=== PATIENT | male | born 1965 | race Caucasian/White ===

== ENCOUNTER 2017-04-05 09:04 | Emergency (ER) | payer BC, OTHER ==
[2017-04-05 09:41] LABS: Hematocrit 46.4 % (42.0-52.0); Mean Cell Volume 90.4 fl (78-100); Mean Corpuscular Hemoglobin 29.2 pg (27-31); Mean Corpuscular Hgb Conc 32.3 g/dl (32-36); Mean Platelet Volume 10.4 fl (6.0-9.5); Neutrophil # 5.7 K/mm3 (1.3-6.0); Neutrophil % 73.3 % (42-75.0); Platelet Count 243 K/mm3 (150-450); Red Blood Count 5.13 M/mm3 (4.7-6.0); Red Cell Distribution Width 14.1 % (11.5-14.0); White Blood Count 7.8 K/mm3 (4.0-10.5)
[2017-04-05 10:05] LABS: Albumin * 3.4 gm/dl (3.4-5.0); BUN/Creatinine Ratio 9.3 (9.0-21.6); Ca. Corrected For Albumin 9.1 mg/dL (8.4-10.2); Calcium * 8.9 mg/dL (7.9-10.9); Carbon Dioxide 26.2 mmol/L (24-32.6); Potassium 4.2 mmol/L (3.4-4.6); Total Protein 8.1 gm/dL (6.2-8.2)
[2017-04-05] MEDS ORDERED: KETOROLAC TROMETHAMINE 30 MG/ML VIAL IV ONE (10:12)
[2017-04-05] MEDS ORDERED: ORPHENADRINE CITRATE 30 MG/ML VIAL IV ONE (10:12)
[2017-04-05] MEDS ORDERED: ORPHENADRINE CITRATE 30 MG/ML VIAL ONE (10:18)
[2017-04-05] MEDS ORDERED: KETOROLAC TROMETHAMINE 30 MG/ML VIAL ONE (10:18)
--- NOTE | 2017-04-05 10:22 | ERNOTE ---
Neuro HPI ER Record Date of Service: 04/05/17 Presenting Symptoms: other - Syncope Time Seen by Provider: 04/05/17 10:00 Source: patient, RN notes reviewed Exam Limitations: no limitations Immunizations: IMMUNIZATION HX History of Influenza Vaccine Yes Allergies/Adverse Reactions: Allergies Allergy/AdvReac Type Severity Reaction Status Date / Time Penicillins Allergy Verified 04/05/17 09:20 Sulfa (Sulfonamide Allergy Verified 04/05/17 09:20 Antibiotics) [Sulfa(Sulfonamide Antibiotics)] Home Medications: HOME MEDICATIONS Lansoprazole [Prevacid] 30 mg PO BID 09/29/16 [Last Taken 09/29/16] Aspirin [Aspirin EC] 81 mg PO DAILY 04/05/17 [Last Taken Unknown] metFORMIN HCL [Metformin HCl] 500 mg PO BID 04/05/17 [Last Taken Unknown] - History of Present Illness Narrative: 51 year old male brought to the ED by private vehicle after a syncopal episode at home. He reports getting up for work at approximately 0500 and feeling dizzy. He called in sick to work, and then woke up on the floor at about 0800. He had been incontinent of stool. He has a long history of cervical and thoracic spine problems. He states he has had stool leakage in the past, but never to this extent. He denies any prior history of seizures. He is diabetic and is on metformin. 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 He ended up having a shoulder surgery in January. He has had a MRI and has been seen by a materials specialist. He has been doing physical therapy. He takes ibuprofen for pain but reports that it "doesn' t do anything." Last Date Known Well: 04/05/17 Last Time Known Well: 05:10 Onset: upon waking, better, >3 hours Context: fall - Syncope - Character of Deficits New weakness: Present: other - None Altered sensation: Present: other - paresthesias in upper extremities - chronic since fall last September Additional Deficits: Absent: vision problems, impaired speech, difficulty swallowing, decrease ability to stand, decrease ability to walk, weakness Baseline Cognition: Present: alert, oriented x 4 Baseline Gait: Present: walks w/o assistance Associated Symptoms: Reports: neck/back pain, fainting. Denies: fever/chills, sweating, chest pain, headache, altered mental status, disoriented, confused, decreased responsiveness Prior Treament: Reports: similar symptoms before Review of Systems - Review of Systems Constitutional: Absent: recent illness, fever, chills, malaise EYE: Absent: eye pain, vision changes ENT: Absent: ear pain, nose congestion, sore throat Respiratory: Absent: shortness of breath, cough Cardiology: Present: syncope. Absent: chest pain, palpitations Gastrointestinal/Abdominal: Present: diarrhea. Absent: nausea, vomiting, abdominal pain Genitourinary: Absent: decreased urinary output, other - incontinence Musculoskeletal: Present: back pain, muscle pain, neck pain Skin: Absent: rash, lesions, lumps Neurological: Present: dizziness/light-headedness, numbness, tingling, pre- existing deficit. Absent: headache, weakness Endocrine: Present: no symptoms reported Hematologic/Lymphatic: Absent: easy bruising, easy bleeding Psych: Absent: emotional problems - Patient's Past Medical History Patient History - Medical: Diabetes Type 2, GERD, Obesity Patient History - Cardiac/Respiratory: No pertinent hx Patient History - Cancer: No Hx of Cancer Patient History - Surgical Procedures: Back Surgery - Cervical with subsequent incisional staph infection, T & A, Orthopedic - Shoulder - Social History Living Situations: home Psych History: No pertinent hx Alcohol Use: none Drug Use: none - Immunizations History of Influenza Vaccine: Yes Physical Exam - Physical Exam General Appearance: Present: wd/wn, alert, no apparent distress, obese Head Exam: Present: normal inspection, no evidence of injury Eye Exam: Normal inspection: bilateral, PERRL: bilateral Neck: Present: limited range of motion - Chronic, tender lateral, tender posterior midline - Chronic Respiratory: Present: no respiratory distress, normal breath sounds, no accessory muscle use, lungs clear Cardiovascular/Chest: Present: normal peripheral pulses, tachycardia - reg rhythm Extremity Exam: Present: normal inspection, non-tender, normal range of motion Neurological Exam: Present: alert, oriented, normal mood/affect Skin Exam: Present: normal color, warm/dry Fidel Coma Scale - Assess Eye Opening: Spontaneous Motor: Obeys Commands Verbal: Oriented - Total Coma Scale Total: 15 ED Progress - Results and Orders Patient's Lab Results:: I have reviewed the patient's lab results. - Vital Signs Patient's Vital Signs:: I have reviewed the patient's vital signs. Vital Signs: Vital Signs 04/05/17 09:15 Temperature 36.3 C L Pulse Rate 110 H Respiratory 12 Rate Blood Pressure 156/95 O2 Sat by Pulse 97 Oximetry - EKG EKG: other - Sinus tach 106 EKG read: Reviewed by me - Progress/Reassessment Chief Complaint: General Assessment Progress:: Improved Progress Note-Subjective: 04/05/17 11:28 Mild improvement in pain after Toradol and Norflex. Patient remained asymptomatic in the ED. Work-up without significant findings but symptoms are suspicious for seizure activity. Patient instructed not to drive until ok'd by his PCP. Discussed need for neurology evaluation. Patient in agreement with plan. Departure Clinical Impression: Syncope Qualifiers: Syncope type: unspecified Qualified Code(s): R55 - Syncope and collapse - Departure Disposition: Home Follow Up Needed Condition: Stable Instructions: Syncope, [id number], Form - Excuse from Work, School, or Physical Activity Additional Instructions: Do not drive until cleared by your physician Your symptoms are suspicious for seizure activity - particularly due to fecal incontinence - and an evaluation by a neurologist would be warranted at this point. Your tests here today (CBC, CMP, UA, UDS and EKG) were without any significant findings. Referrals: Cali Haro MD [Primary Care Provider] -
[2017-04-05 10:24] LABS: Urine Bilirubin Negative (NEGATIVE); Urine Blood Negative /ul (NEGATIVE); Urine Ketone Negative (NEGATIVE); Urine Nitrite Negative (NEGATIVE); Urine Protein 100 mg/dL (NEGATIVE); Urine Specific Gravity >=1.030 SP.GR. (1.005-1.030); Urine Urobilinogen Normal (NORMAL)
[2017-04-05 10:41] LABS: Urine Appearance Clear; Urine Color Dark Yellow
[2017-04-05 10:42] LABS: Urine Bacteria None Seen; Urine RBC None Seen /hpf (0-5); Urine WBC None Seen /hpf (0-5)
[2017-04-05 10:48] LABS: Cocaine Ur Negative (NEGATIVE); Urine Barbiturate Negative (NEGATIVE); Urine Benzodiazepines Negative (NEGATIVE); Urine Opiates Negative (NEGATIVE); Urine PCP Negative (NEGATIVE); Urine THC Negative (NEGATIVE)
[2017-04-05 11:41] VITALS: BP 131/86
== END 2017-04-05 11:43 | disposition home or self-care (01) ==
LOC: ER 09:04
DX: R55 Syncope and collapse (principal); E11.9 Type 2 diabetes mellitus without complications; K21.9 Gastro-esophageal reflux disease without esophagitis